=== PATIENT | female | born 1950 | race Native Hawaiian/Other Pacific Islander ===

== ENCOUNTER 2016-08-11 05:56 | Observation (INO) | payer MEDICAID ==
[2016-08-10 10:47] VITALS: BMI 28.8
[2016-08-11] MEDS ORDERED: Bupivacaine 0.25%-Epinephrine 1:200,000 (30 ml) Inj ONE (07:14)
[2016-08-11] MEDS ORDERED: Propofol 10 mg/ml Inj (20 ML) ONE (07:17)
[2016-08-11] MEDS ORDERED: ePHEDrine 50 mg/ml Inj ONE ×2 (07:17→09:16)
[2016-08-11] MEDS ORDERED: Midazolam 2 MG/2 ML VIAL ONE (07:17)
[2016-08-11] MEDS ORDERED: Lidocaine 4% (Laryng-O-Jet) Kit MM ONE (07:18)
[2016-08-11] MEDS ORDERED: Rocuronium 10 mg/ml (5 ml) ONE ×2 (07:18→09:42)
[2016-08-11] MEDS ORDERED: Succinylcholine 200 mg/10 ml Inj IV ONE (07:18)
[2016-08-11] MEDS ORDERED: Neostigmine Methylsulfate 2 MG/2 ML ML IV ONE (07:22)
[2016-08-11] MEDS ORDERED: Neostigmine Methylsulfate 3mg/3ml Syringe IV ONE ×2 (07:22→10:37)
[2016-08-11] MEDS ORDERED: Lactated Ringer's 1,000 ML IV ONE ×2 (08:45)
[2016-08-11] MEDS ORDERED: Dexamethasone 4 mg/1 ml ONE (10:37)
[2016-08-11] MEDS ORDERED: Desflurane Inhalation Anesthetic Liq (240 ml) ONE (10:53)
[2016-08-11] MEDS ORDERED: Liquid Adhesive TOP ONE (11:09)
[2016-08-11] MEDS ORDERED: HYDROmorphone 0.5 mg/0.5 ml ISec IVP PRN (11:40)
[2016-08-11] MEDS: Lactated Ringer's 1,000 ML IV SCH ×2 (12:30→20:36)
[2016-08-11] MEDS ORDERED: Oxycodone/Acetaminophen 5/325 mg Tab PO PRN (12:43)
--- NOTE | 2016-08-11 12:48 | PCM.SURG1 ---
Surgeon's Initial Post Op Note - Surgeon's Notes Surgeon: miranda oliveros md Desk Attendant: collin KAMINSKI Type of Anesthesia: General Endo, Local Pre-Operative Diagnosis: Chronic pelvic pain. Prolapse uterus. Urinary incontinence Operative Findings: Chronic pelvic pain. Prolapse uterus. Urinary incontinence. Detailed Operative Report. This is a 66 years old female female with symptomatic uterine prolapse, chronic pelvic pain and urinary incontinence. The patient completed an extensive preoperative workup, which included an ultrasound, as well as a pap smear, chemistry and hematology studies. The patient reported these symptoms and problems as debilitating, and adversely affecting her quality of life. Following a period of failed conservative management, and patient decision was made to proceed with a more invasive approach to address the above noted problems. A decision was finally made to proceed with a total robotic assisted hysterectomy, bilateral salpingoophorectomy, and vaginal vault suspension. A detailed description of this robotic procedure was given to the patient, all risks and benefits of the surgical modality was reviewed, printed material was also given to the patient regarding robotic surgery. The patient fully understood all the risks and benefits and elected to proceed with this proposed procedure. After proper consent was obtained from the patient was taken to the operating room, proper patient identification was completed. She was placed in dorsal lithotomy position; general anesthesia was induced without difficulty. Her legs were placed in adjustable Eleuterio stirrups. Careful attention was placed not to over- flex or over-rotate the lower extremities at the hip or the knee joints. She was prepped and draped appropriately for robotic assisted hysterectomy. Majano catheter was inserted under sterile conditions. A weighted speculum was placed in the vagina, anterior lip of cervix was grasped with a tenaculum, and a V- care uterine manipulator was inserted through the cervix and secured. The weighted speculum and tenaculum were removed from the patient's vagina and attention was turned to the patient's abdomen. Local anesthetic solutions of 0.25% Marcaine with epinephrine were utilized to infiltrate the skin prior to all abdominal skin incisions. A total of 15 mL of 0.25% Marcaine was utilized throughout the procedure. While tenting the abdominal wall, a Veres needle was inserted through the umbilicus and a pneumoperitoneum was obtained. a 1 and 1/ 2 inch vertical incision was made through the umbilicus and a single site gel port was inserted and secured in place. A robotic camera was inserted through this single site toward, and an initial survey of the patient's abdomen revealed the relatively normal-size uterus, status post BTL and moderate pelvic adhesions. Both ovaries appeared normal with normal appearing fallopian tubes status post tubal ligation. The patient was placed in Trendelenburg position ready for a da Luisito robotic system to be docked. the camera port was docked first, curve cannulas were inserted through the single site port, and the sports were docked as well. fenestrated bipolar was inserted through the cannula #1 and a monopolar hook was inserted through cannula #2. And assist port was inserted on the patient's left side approximately 5 cm above the superior crest. 8 mm trocar was inserted. All trocars were inserted under direct visualization. The placement of the trocars was all accomplished under careful and meticulous placement under direct visualization. Meticulous and careful lysis of adhesions as well as enterolysis was accomplished utilizing the monopolar aisha and bipolar device. Prior to the start of the hysterectomy , both ureters and their courses were visualized, peristalsis bilaterally. On the patient's right side, the IP and the round ligaments were identified cauterized and transected, the broad ligament was divided all the way down to the utero cervical junction bladder flap was then created by transecting the visceroperitoneum over the bladder reflection. In a similar fashion, the left round ligament, IP ligament and broad ligament were cauterized sealed and transected, taken down to the level of the cervical uterine junction. Uterine vessels on both sides were sealed and transected. The Uterosacral ligaments were sealed and transected. The monopolar aisha and PK were utilized to complete the colpotomy incision around the care vaginal ring. Excellent hemostasis was noted. The uterus, cervix, ovaries and fallopian tubes were delivered transvaginal through the colpotomy incision and sent to pathology for permanent analysis. The colpotomy incision was closed with 2-0 v LOC in a continuous fashion with excellent hemostasis. The vaginal vault suspension was achieved by suspending the vaginal cuff to the base of the uterosacral ligaments bilaterally. For uterosacral ligament suspension portion of the procedure, the ureters were once again identified to avoid possible compromise or kinking while suspending the vaginal vault. A 2-0 permanent suture material ( Wadsworth-Daniel) was utilized to suspend the uterosacral ligaments from the base to the vaginal vault cuff incision including both anterior and posterior aspect of the colpotomy incision. Utilizing a 3-0 Monocryl suture, the peritoneum over the colpotomy incision and uterosacral ligaments was re-approximated in a continuous fashion. The abdomen was throughout irrigated and cleared of all clots and debris. FloSeal as well as Interceed was applied to the incision sites. Excellent hemostasis was again noted. All robotic and laparoscopic instruments removed under direct visualization. The robotic arms were undocked , and a da Luisito robotic system was wheeled away from the patient's bedside. A 1.5 inch vertical incision through the umbilicus was closed first fascial layer utilizing a 0 Vicryl suture material in interrupted fashion, followed by 2-0 Vicryl in a subcuticular fashion, and extraoral Monocryl in a subcutaneous fashion. Pneumoperitoneum was reduced and all skin incisions were closed utilizing 4-0 Monocryl in a subcutaneous fashion. Dermabond was applied to all incisions. Due to the complexity of this hysterectomy and colpopexy, a diagnostic cystoscopy was completed. The Majano catheter was removed; the bladder was distended with approximately 350 cc of normal saline. A 30 cystoscope was introduced and a survey of the bladder anatomy was completed. The base, and the dome of the bladder appeared normal, both ureteral orifices appeared normal and were efluxing urine freely. The urethra appeared normal. A Majano catheter was reinserted. Vaginal packing was inserted to be removed the next morning. Patient emerged from general anesthesia without difficulty, and was taken to recovery room in stable condition. Prior to incision the patient received antibiotics, prior to closure sponge lap and needle counts were correct x2. Post-Operative Diagnosis: Chronic pelvic pain. Prolapse uterus. Urinary incontinence Operation Performed: Total robotic hysterectomy BSO (single site robotic). Uterosacroligamant suspenssion. Cystoscopy Specimen/Specimens Removed: uterus, cervix tubes and ovaries Estimated Blood Loss: EBL {In ML}: 20 Blood Products Given: N/A Drains Used: No Drains Post-Op Condition: Good Date of Surgery/Procedure: 08/11/16 Time of Surgery/Procedure: 10:48
[2016-08-12] MEDS: Lactated Ringer's 1,000 ML IV SCH (04:06)
[2016-08-12 08:22] VITALS: BP 119/70; PULSE 69; RESP 20; TEMP 98.6; O2SAT 93
[2016-08-12 14:12] LABS: HEMATOCRIT 33.8 % (34.0-47.0); MEAN CELL VOLUME 89.9 fl (81.0-99.0); MEAN CORPUSCULAR HEMOGLOBIN 31.5 pg (27.0-31.0); RED CELL DISTRIBUTION WIDTH 12.8 % (11.5-14.5); WHITE BLOOD COUNT 9.3 K/uL (4.8-10.8)
--- NOTE | 2016-08-17 17:12 | PROCN ---
DATE: 08/11/2016 SURGEON: Dr. Urvashi Moreira CARE PROGRAM DIRECTOR: Prudence Neri PA-C PREOPERATIVE DIAGNOSES: Chronic pelvic pain, prolapsed uterus, urinary incontinence. POSTOPERATIVE DIAGNOSES: Chronic pelvic pain, prolapsed uterus, urinary incontinence. PROCEDURE: Total robotic hysterectomy, bilateral salpingo-oophorectomy, single site robotic; uterosa cral ligament suspension and cystoscopy. There was no resident to assist during this case. I, Prudence Neri am a board certified surg [facility] physician certified ophthalmic surgical assistant whose assistance was needed during this case for positioning of the patient, opening and closing incisions, docking of the da Luisito robotic arms, uterine manipulation during dis sections, extraction of uterine contents, exchange of robotic instruments throughout the procedure, t o facilitate intraabdominal suturing, maintenance of surgical field. My assistance was deemed necess mariam for the successful completion of the case. I was present for the entire case with Dr. Moreira. Prudence Neri PA-C Urvashi Moreira MD cc: [id number] TT: 08/17/2016 17:12:14 Confirmation # [id number] Dictation # [id number]
== END 2016-08-12 18:08 | disposition home or self-care (01) ==
LOC: H.OPSURG 05:56 → H.MEDSURG1 12:34
PROVIDERS: ADMIT Obstetrics & Gynecology; ATTEND Obstetrics & Gynecology
DX: N81.4 Uterovaginal prolapse, unspecified (principal); R35.0 Frequency of micturition; N39.3 Stress incontinence (female) (male)